=== PATIENT | female | born 1995 | race Two or more races ===

== ENCOUNTER 2022-03-20 09:26 | Outpatient (CLI) | payer OTHER | END 2022-03-20 09:27 | disposition home or self-care (01) | LOC: LAB 09:26 | PROVIDERS: ATTEND General Practice | DX: R05.9 Cough, unspecified (principal); R06.02 Shortness of breath; Z03.818 Encounter for observation for suspected exposure to other biological agents ruled out; Z20.828 Contact with and (suspected) exposure to other viral communicable diseases ==